=== PATIENT | male | born 1955 | race Caucasian/White ===

== ENCOUNTER → 2017-12-25 | Outpatient (CLI) | payer OTHER ==
[~2017-12-25] MED LIST: ACYC200C PO; CLOT15CR5 TP; GLIM2TAB3 PO; LINA5TAB PO; LISI-613 PO; ONDA4TAB4 PO
== END | disposition home or self-care (01) ==
LOC: RAH 12:33
PROVIDERS: ATTEND Family Medicine
DX: M25.571 Pain in right ankle and joints of right foot (principal); E11.9 Type 2 diabetes mellitus without complications; F32.9 Major depressive disorder, single episode, unspecified; E66.01 Morbid (severe) obesity due to excess calories; I12.9 Hypertensive chronic kidney disease with stage 1 through stage 4 chronic kidney disease, or unspecified chronic kidney disease; E11.22 Type 2 diabetes mellitus with diabetic chronic kidney disease; N18.2 Chronic kidney disease, stage 2 (mild)
CPT/HCPCS: 73600; 73620

== ENCOUNTER → 2024-06-02 | Emergency (ER) | payer OTHER ==
[~2024-06-02] VITALS: Ht 175.3 cm; Wt 98.0 kg
[~2024-06-02] MED LIST changes: -ACYC200C PO; +ACYC200C24 PO; -GLIM2TAB3 PO; +GLIM2TAB30 PO; +LEVO750T40 PO; -LISI-613 PO; +LISI20TA24 PO; +MAGN420T PO
--- NOTE | 2024-06-02 17:21 | ERN ---
ED Note History of Present Illness Stated Complaint: PAIN Time Seen by MD: 17:02 Dictation: PATIENT IS A 68-YEAR-OLD MALE COMING IN WITH COMPLAINTS OF LEFT UPPER AND LOWER QUADRANT PAIN TENDERNESS, SHORTNESS A BREATH ONSET 2-3 HOURS PRIOR TO ARRIVAL. HE STATES HE HAD A INCREASE TODAY DIABETIC MEDICATION AND THINKS HIS PANCREAS IS INFLAMED. DENIES HISTORY OF PANCREATITIS NO CHEST PAIN NO BACK PAIN. STATES HE FEELS SHORT OF BREATH AND FEELS VERY WEAK Allergies: Coded Allergies: No Known Drug Allergies (Verified Allergy, Unknown, 12/21/15) Home Meds Active Scripts Magnesium Oxide (Magnesium Oxide) 420 Mg Tablet, 1 TAB PO DAILY for 7 Days, #30 TAB 0 Refills Prov:CHARLI BAUER 04/23/24 Levofloxacin (Levofloxacin) 750 Mg Tablet, 1 TAB PO DAILY for 5 Days, #7 TAB 0 Refills Prov:CHARLI BAUER 04/23/24 Reported Medications Acyclovir (Acyclovir) 200 Mg Capsule, 200 MG PO AD PRN for COLD SORE, CAP 12/20/15 Linagliptin (Tradjenta) 5 Mg Tablet, 5 MG PO DAILY EVENING, TAB 12/20/15 Ondansetron HCl (Zofran) 4 Mg Tablet, 4 MG PO AD PRN for NAUSEA, TAB 12/20/15 Glimepiride (Glimepiride) 2 Mg Tablet, 2 MG PO DAILY EVENING, TAB 12/20/15 Lisinopril (Lisinopril) 20 Mg Tablet, 20 MG PO DAILY EVENING, TAB 12/20/15 Clotrimazole/Betamethasone Dip (Clotrimazole-Betamethasone Crm) 15 Gm Cream..g., TP BID PRN for AFFECTED AREAS 12/20/15 Past Medical History Past Medical History: Bipolar, Diabetes-Type II Surgical History: Cholecystectomy RN Note Reviewed/Agreed w/PFSH: Yes Review of System Dictation CONSTITUTIONAL: NEGATIVE EXCEPT FOR HPI WEAK HEAD/FACE: NEGATIVE EXCEPT FOR HPI EENT: NEGATIVE EXCEPT FOR HPI RESPIRATORY: NEGATIVE EXCEPT FOR HPI SHORTNESS A BREATH GASTROINTESTINAL/ABDOMINAL: NEGATIVE EXCEPT FOR HPI DIFFUSE ABDOMINAL PAIN GENITOURINARY: NEGATIVE EXCEPT FOR HPI MUSCULOSKELETAL: NEGATIVE EXCEPT FOR HPI INTEGUMENTARY: NEGATIVE EXCEPT FOR HPI NEUROLOGICAL/PSYCH: NEGATIVE EXCEPT FOR HPI HEMATOLOGIC/LYMPHATIC: NEGATIVE EXCEPT FOR HPI ALL SYSTEMS NEGATIVE, EXCEPT NOTED ABOVE. 13 POINT REVIEW OF SYSTEMS ASSESSED AND ALL NEGATIVE EXCEPT FOR ABOVE. Initial Vital Sign VS Vital Signs Date Time Temp Pulse Resp B/P (MAP) Pulse Ox O2 Delivery O2 Flow Rate FiO2 06/02/24 17:32 98.6 73 20 138/69 98 Room Air 0 Physical Exam Dictation VITAL SIGNS REVIEWED GENERAL APPEARANCE: ALERT, ORIENTED X 3, MILD ACUTE DISTRESS, WELL DEVELOPED, NOURISHED. OBESE HEAD AND FACE: NON-TRAUMATIC. EYES: PERRL, PINK CONJUNCTIVAS, EYELID NO TRAUMA, ANTERIOR CHAMBER WITH ARCUS SENILIS. EARS: PINNAS INTACT AND NO SIGNS OF TRAUMA OR ERYTHEMA EAR CANALS CLEAR AND NO DISCHARGE TM NO ERYTHEMA NOSE: NO DISCHARGE, NO BLEEDING. OROPHARYNX: MOUTH NORMAL, TONGUE PINK, PHARYNX CLEAR,NO ERYTHEMA, TONSILS NO EXUDATES, NO ABSCESSES NOTED, MUCOUS MEMBRANE MOIST NECK: SUPPLE, NON-TENDER, NO THYROMEGALY, NO MASSES, NO JVD, NO BRUITS BREAST:DEFERRED CHEST:NO TENDERNESS, NO CREPITUS, NO PARADOXICAL MOVEMENT, NO RETRACTIONS LUNGS:CLEAR, WELL-VENTILATED, SYMMETRIC, NO RALES, NO WHEEZING, NO RHONCHI, NO STRIDOR, GOOD BREATH SOUNDS BILATERALLY HEART: REGULAR RATE, REGULAR RHYTHM, NO MURMUR, NO GALLOPS VASCULAR: NO PERIPHERAL EDEMA, ABDOMEN: SOFT, POSITIVE BOWEL SOUNDS, NONDISTENDED, NO GUARDING, NONTENDER, NO REBOUND, NO MASSES NO HEPATOMEGALY, NO SPLENOMEGALY, NO FLORIAN'S SIGN, NO HERNIAS. NO FOCAL TENDERNESS RECTAL: DEFERRED GENITAL: DEFERRED NEUROLOGICAL: NORMAL SPEECH, MOTOR FUNCTION INTACT, SENSORY FUNCTION INTACT MUSCULOSKELETAL: NECK NONTENDER, FULL RANGE OF MOTION, BACK NONTENDER, FULL RANGE OF MOTION, EXTREMITIES: NONTENDER, FULL RANGE OF MOTION SKIN: COLOR PINK, DRY, NO TURGOR, NO RASH, NO LACERATIONS, NO ABRASIONS, NO CONTUSIONS. LYMPHATIC: DEFERRED Results (Laboratory/Radiology) Laboratory/Radiology Laboratory Tests Test 06/02/24 17:32 06/02/24 17:34 06/02/24 17:53 Whole Blood Glucose 349 MG/DL (70-110) H SARS-CoV-2 Antigen (Rapid) PRESUMPTIVE NEGATIVE White Blood Count 11.6 K/uL (4.8-10.8) H Red Blood Count 5.09 MIL/uL (4.50-6.20) Hemoglobin 14.1 g/dL (14.0-18.0) Hematocrit 42.4 % (42-54) Mean Corpuscular Volume 83.3 fL (79-99) Mean Corpuscular Hemoglobin 27.7 pg (27.0-33.0) Mean Corpuscular Hemoglobin Concent 33.3 g/dL (32.0-36.0) Red Cell Distribution Width 13.9 % (11.0-15.5) Platelet Count 166 K/uL (130-400) Mean Platelet Volume 9.8 fL (7.5-10.5) Immature Granulocyte % (Auto) 0.5 % (0-1) Neutrophils (%) (Auto) 78.6 % (40.0-77.0) H Lymphocytes (%) (Auto) 13.8 % (21.0-51.0) L Monocytes (%) (Auto) 6.4 % (3.0-13.0) Eosinophils (%) (Auto) 0.4 % (0.0-8.0) Basophils (%) (Auto) 0.3 % (0.0-5.0) Neutrophils # (Auto) 9.1 K/uL (1.8-7.7) H Lymphocytes # (Auto) 1.6 K/uL (1.0-4.8) Monocytes # (Auto) 0.7 K/uL (0.1-1.0) Eosinophils # (Auto) 0.05 K/uL (0.00-0.70) Basophils # (Auto) 0.03 K/uL (0.00-0.20) Absolute Immature Granulocyte (auto 0.06 K/uL (0-1) Nucleated Red Blood Cells 0.0 % (0.0-0.19) Sodium Level 134 mmol/L (136-145) L Potassium Level 3.5 mmol/L (3.5-5.1) Chloride Level 98 mmol/L (101-111) L Carbon Dioxide Level 27 mmol/L (21-32) Blood Urea Nitrogen 17 mg/dL (7-18) Creatinine 1.1 mg/dL (0.5-1.3) Glomerular Filtration Rate Calc 74 mL/min (>90) Random Glucose 369 mg/dL (70-105) H Total Calcium 9.0 mg/dL (8.5-10.1) Troponin I High Sensitivity < 4 ng/L (4-75) L B-Type Natriuretic Peptide < 5 pg/mL (0-100) Lipase 36 U/L (16-77) Labs Reviewed?: Yes ED Course ED Course Orders Procedure Category Date Status Time Cbc With Differential LAB 06/02/24 Complete 17:19 Troponin I High LAB 06/02/24 Complete Sensitivity 17:19 12 Lead Ekg Tracing- EKG 06/02/24 Complete Technical 17:19 Chest 1vw RAD 06/02/24 Resulted 17:19 Lipase LAB 06/02/24 Complete 17:19 Basic Metabolic Panel LAB 06/02/24 Complete 17:19 Covid19 (Sars Antigen LAB 06/02/24 Complete Rapid) 17:19 B-Type Natriuretic LAB 06/02/24 Complete Peptide 17:19 Vital Signs Date Time Temp Pulse Resp B/P (MAP) Pulse Ox O2 Delivery O2 Flow Rate FiO2 06/02/24 17:32 98.6 73 20 138/69 98 Room Air 0 Medical Decision Making MDM PATIENT LEFT AGAINST MEDICAL ADVICE AND TOLD THE BUSINESS STAFF THAT THEY WERE GOING TO ANOTHER HOSPITAL Procedure Procedure Dictation: 1904/MEDICAL DECISION-MAKING PATIENT LEFT AMA FROM THE WAITING ROOM TOLD THE TIMBER SPRINKLER THAT HE WAS GOING TO GO TO ANOTHER HOSPITAL. DX & DISP Disposition: AMA Departure Impression: Primary Impression: Shortness of breath Additional Impression: Abdominal pain Condition: Against Medical Advice Referrals: MAX LOUIS MD (PCP) Time of Disposition: 19:10 I have reviewed the case, and I agree with, Diagnosis and Plan I performed the substantive portion of the visit. I have reviewed and personally made and approve the management plan that is documented in the notes by myself or the TANNA. I acknowledge full responsibility for the patient's management plan. JEAN-PIERRE RADER NP Jun 02, 2024 17:21 BERNARDO BERUMEN MD Jun 03, 2024 11:47
[2024-06-02 17:32] VITALS: BP 138/69; PULSE 73; RESP 20; TEMP 98.6
--- NOTE | 2024-06-02 17:44 | EKG ---
[facility] Test Date: 2024-06-02 Test Time: 17:42:18 Pat Name: ABHINAV RICHARDS Department: ED Room: Gender: M [employer] Supervisor: [facility] : 1955 Requested By: JEAN-PIERRE RADER Order Number: [id number] Reading MD: Arcadio Blackman Measurements Intervals Berger Rate: 81 P: 57 HI: 151 QRS: 23 QRSD: 101 T: 50 QT: 386 QTc: 450 Interpretive Statements Sinus rhythm Low voltage, precordial leads No previous ECG available for comparison Electronically Signed On 06-03-2024 11:53:28 CATERING SERVICE MANAGER by Arcadio Blackman Please click the below link to view image of tracing.
[2024-06-02 18:01] LABS: BASOPHILS # (AUTO) 0.03 K/uL (0.00-0.20); BASOPHILS % (AUTO) 0.3 % (0.0-5.0); EOSINOPHILS # (AUTO) 0.05 K/uL (0.00-0.70); EOSINOPHILS % (AUTO) 0.4 % (0.0-8.0); HEMATOCRIT 42.4 % (42-54); IMMATURE GRANULOCYTE ABSOLUTE 0.06 K/uL (0-1); LYMPHOCYTES # (AUTO) 1.6 K/uL (1.0-4.8); LYMPHOCYTES % (AUTO) 13.8 % (21.0-51.0); MEAN CORPUSCULAR HEMOGLOBIN 27.7 pg (27.0-33.0); MEAN CORPUSCULAR HGB CONC 33.3 g/dL (32.0-36.0); MEAN CORPUSCULAR VOLUME 83.3 fL (79-99); MONOCYTES # (AUTO) 0.7 K/uL (0.1-1.0); MONOCYTES % (AUTO) 6.4 % (3.0-13.0); NEUTROPHILS # (AUTO) 9.1 K/uL (1.8-7.7); NEUTROPHILS % (AUTO) 78.6 % (40.0-77.0); PLATELET COUNT (AUTO) 166 K/uL (130-400); RED BLOOD CELL COUNT(AUTO) 5.09 MIL/uL (4.50-6.20); RED CELL DISTRIBUTION WIDTH 13.9 % (11.0-15.5); WHITE BLOOD COUNT (AUTO) 11.6 K/uL (4.8-10.8)
[2024-06-02 18:12] LABS: CREATININE 1.1 mg/dL (0.5-1.3); POTASSIUM 3.5 mmol/L (3.5-5.1)
[2024-06-02 18:20] LABS: B-TYPE NATRIURETIC PEPTIDE < 5 pg/mL (0-100)
--- NOTE | 2024-06-02 18:25 | HMCIMG ---
PORTABLE CHEST RADIOGRAPH INDICATION: SHORTNESS A BREATH COMPARISON: 05/27/2007 FINDINGS: Patient positioning is not optimal, but the radiologic examination is still believed to be of reasonable diagnostic quality. Heart size is normal. The pulmonary vascularity and alondra appear normal. No abnormal pulmonary parenchymal opacity or consolidation identified. No significant pleural effusion noted. No pneumothorax detected. IMPRESSION: No radiographic evidence for any acute cardiopulmonary process.
--- NOTE | 2024-06-02 19:01 | NUR ---
CALLED FOR PT TO MOVE TO BED; NO RESPONSE, PT NOT FOUND IN LOBBY.
--- NOTE | 2024-06-02 19:07 | NUR ---
PER REGISTRATION, PT DECIDED TO LEAVE EARLIER TODAY
== END ==
LOC: EDH 16:34
DX: R06.02 Shortness of breath (principal); R10.12 Left upper quadrant pain; R10.32 Left lower quadrant pain; E11.9 Type 2 diabetes mellitus without complications; Z79.84 Long term (current) use of oral hypoglycemic drugs; Z79.899 Other long term (current) drug therapy; Z90.49 Acquired absence of other specified parts of digestive tract; Z20.822 Contact with and (suspected) exposure to COVID-19
CPT/HCPCS: 36415; 71045; 80048; 82948; 83690; 83880; 84484; 85025; 87426; 93005; 99285